=== PATIENT | female | born 1955 | race Caucasian/White ===

== ENCOUNTER 2025-10-15 18:46 | Inpatient (IN) | payer MEDICARE, MEDICAID ==
[~2025-10-15] VITALS: Ht 170.2 cm; Wt 75.0 kg
[~2025-10-15 18:46] MED LIST: OMEP-434 PO; ONDA-144 PO; SULF400T11; aspirin; clindamycin; doxy; gabapentin; ibuprofen; metformin
[2025-10-15] MEDS: DEXTROSE 50% SYRINGE 50 ML IV ONE (18:52)
[2025-10-15] MEDS: DEXTROSE (50%) 50ML SYRG IV ONE (18:53)
--- NOTE | 2025-10-15 19:18 | ED.PDOC ---
History of Present Illness HPI Comments 69-year-old female is brought in by ambulance from private residence for chief complaint of altered mental status. Significant history for CAD, DM-insulin dependent, HLD, HTN, hypothyroidism, UTIs. Patient was found by family unresponsive, this evening, with past well known time at around [id number], this morning. Baseline is GCS15. Initial on scene blood glucose reading of 'low.' and well, patient was given 1 bag of dextrose, blood glucose reassessed at a value of 34. Upon arrival to ED, patient is awake and alert but drowsy and reports on taking her insulin and passing out prior to eating her dinner. She reports on similar events happening in the past whenever taking her insulin and not being able to eat. Normally, she is compliant with her medications and comments on no recent changes them. Aside from feeling drowsy, currently, patient reports no further acute symptoms. Chief Complaint: Hypoglycemia Time Seen by MD: 18:50 Reviewed Notes: Nurses Notes, Button Spindler Notes, Medications, Allergies Allergies: Coded Allergies: NO KNOWN ALLERGIES (Unverified , 10/15/25) Information Source: Patient, Emergency Med Personnel Mode of Arrival: EMS Severity: Moderate Timing: Hours Duration: Since onset Prehospital treatment: 12 Lead EKG, Accucheck, Installation Supervisor, Treatment (Dextrose) Past Medical History PAST MEDICAL HISTORY: CAD (Angina), DM, High Lipids, HTN, Thyroid (Hypothyroidism), UTI'S Past Medical History (Other): Gastroparesis Surgical History: Denies all surgeries AEROSPACE MEDICINE PHYSICIAN History: Denies all AEROSPACE MEDICINE PHYSICIAN Hx Family History Family History: Unknown Social History Smoker: Cigarettes Alcohol: Occasionally Drugs: Denies Drug Use Lives In: Home All Other Systems: Reviewed and Negative (Comprehensive review of systems are negative unless stated in HPI) Physical Exam General Appearance: No Apparent Distress, Normal HEENT: Normal ENT Inspection, Pharynx Normal, TMs Normal Neck: Full Range of Motion, Non-Tender, Normal, Normal Inspection Respiratory: Chest Non-Tender, Lungs Clear, No Accessory Muscle Use, No Res piratory Distress, Normal Breath Sounds Cardiovascular: No Edema, No JVD, No Murmur, No Gallop, Normal Peripheral Pulses, Regular Rate/Rhythm Breast Exam: Deferred Gastrointestinal: No Organomegaly, Non Tender, No Pulsatile Mass, Normal Bowel Sounds, Soft Genitalia: Deferred Pelvic: Deferred Rectal: Deferred Extremities: No calf tenderness, Normal capillary refill, Normal inspection, Normal range of motion, Non-tender, No pedal edema Musculoskeletal : Apperance: Normal Neurologic: Alert (Compliant), customer retention representative II-XII nml as Tested, No Motor Deficits, No Sensory Deficits, Speech Problem (Slow speech), Other (Drowsy affect; no focal deficits) Cerebellar Function: Normal Reflexes: Normal Skin: Dry, Normal Color, Warm Lymphatic: No Adenopathy Was a procedure done? Was a procedure done?: No Differential Dx Considerations may include: Hypoglycemia, encephalopathy, dehydration, electrolyte imbalance, medication noncompliance, among others X-Ray, Labs, Meds, VS Vital Signs Date Time Temp Pulse Resp B/P (MAP) Pulse Ox O2 Delivery O2 Flow Rate FiO2 10/15/25 21:10 98 14 99 Room Air* 0 21 10/15/25 21:08 97.7 99 14 143/64 (90) 100 97.7 10/15/25 19:18 87 10/15/25 18:55 98.1 86 18 129/64 98 98.1 Lab Test 10/15/25 20:56 10/15/25 19:59 Range/Units POC Glucose 194 H 70-106 mg/dl White Blood Count 9.6 4.4-10.8 10^3/uL Red Blood Count 4.27 4.0-5.20 10^6/uL Hemoglobin 12.3 12.2-16.2 g/dL Hematocrit 37.6 36.0-46.0 % Mean Corpuscular Volume 88.0 80.0-100.0 fL Mean Corpuscular Hemoglobin 28.9 28.0-32.0 pg Mean Corpuscular Hemoglobin Concent 32.9 32.0-36.0 g/dL Red Cell Distribution Width 14.9 H 11.8-14.3 % Platelet Count 134 L 140-450 10^3/uL Mean Platelet Volume 9.0 6.9-10.8 fL Neutrophils (%) (Auto) 80.5 H 37.0-80.0 % Lymphocytes (%) (Auto) 12.6 10.0-50.0 % Monocytes (%) (Auto) 5.1 0.0-12.0 % Eosinophils (%) (Auto) 1.4 0.0-7.0 % Basophils (%) (Auto) 0.4 0.0-2.0 % Neutrophils # (Auto) 7.7 1.6-8.6 10 ^3/uL Lymphocytes # (Auto) 1.2 0.4-5.4 10 ^3/uL Monocytes # (Auto) 0.5 0-1.3 10 ^3/uL Eosinophils # (Auto) 0.1 0-0.8 10 ^3/uL Basophils # (Auto) 0 0-0.2 10 ^3/uL Nucleated Red Blood Cells 0.0 % Sodium Level 137 136-145 mmol/L Potassium Level 3.7 3.5-5.1 mmol/L Chloride Level 100 98-107 mmol/L Carbon Dioxide Level 27 20-31 mmol/L Anion Gap 10 5-15 Blood Urea Nitrogen 12 9-23 mg/dL Creatinine 0.70 0.550-1.02 mg/dL Glomerular Filtration Rate Calc 93 >90 mL/min BUN/Creatinine Ratio 17.1 10.0-20.0 Serum Glucose 281 H 74-106 mg/dL Calcium Level 8.5 L 8.7-10.4 mg/dL Creatine Kinase 150 H 34-145 U/L Troponin I High Sensitivity 6 </=34 ng/L Current Medications Medications (Trade) Dose Ordered Sig/Claudia Route Start Time Stop Time Status Last Admin Dextrose 50 ml ONCE ONCE IV 10/15/25 19:00 10/15/25 19:01 DC 10/15/25 18:53 Sodium Chloride 1,000 ml @ 30 mls/hr Q24H ONCE IV 10/15/25 19:00 10/16/25 18:59 10/15/25 21:05 Time of 1ST Reevaluation: 19:20 Reevaluation 1ST: Unchanged Patient Education/Counseling: Diagnosis, Treatment, Need For Follow Up Family Education/Counseling: No Family Present Comments This is a patient who thinks there blood sugar dropped because she took her insulin right before she ate. However she has had multiple episodes of this in the past. Here her blood sugar dropped again by the time the patient came here after she had received dextrose by paramedics. Patient is still appears groggy and slightly confused. She does not have any focal neurologic findings. Patient will be admitted for further observation for recurrent hypoglycemia Additional Information Previous visits reviewed: n/a Labs ordered: Accu-Chek, creatinine kinase, troponin, BMP, UA, CBC Images reviewed: Chest x-ray Additional historian is interviewed: EMS personnel SEPSIS Sepsis Screen Date sepsis recognized/suspect: Oct 15, 2025 Time Sepsis recognized/suspect: 1854 Recent Procedure: No On Antibiotic Therapy: No Respiratory Rate >20: No Heart Rate >90: No Temp<36 C (96.8 F) or >38.3 C: No SBP <90 or MAP <65 mmHG: No New Acute Mental Status Change: No Is the patient on CPAP, BIPAP,: No Physician Orders Chest Portable (10/15/25 18:58) Urinalysis (10/15/25 18:58) Sodium Chloride 0.9% (10/15/25 19:00) Continuous Ekg Monitoring 08,12,16,20,00,04 (10/15/25 19:01) Electrocardigram (10/15/25 19:01) Accucheck (10/15/25 20:00) Accucheck (10/15/25 21:00) Accucheck (10/15/25 22:00) Accucheck (10/15/25 23:00) Accucheck (10/16/25 00:00) Accucheck (10/16/25 01:00) Accucheck (10/16/25 02:00) Accucheck (10/16/25 03:00) Accucheck (10/16/25 04:00) Accucheck (10/16/25 05:00) Accucheck (10/16/25 06:00) Accucheck (10/16/25 07:00) Accucheck (10/16/25 08:00) Accucheck (10/16/25 09:00) Accucheck (10/16/25 10:00) Accucheck (10/16/25 11:00) Accucheck (10/16/25 12:00) Accucheck (10/16/25 13:00) Accucheck (10/16/25 14:00) Accucheck (10/16/25 15:00) Accucheck (10/16/25 16:00) Accucheck (10/16/25 17:00) Accucheck (10/16/25 18:00) Accucheck (10/16/25 19:00) Accucheck (10/16/25 20:00) Accucheck (10/16/25 21:00) Accucheck (10/16/25 22:00) Accucheck (10/16/25 23:00) Vital Signs Date Time Temp Pulse Resp B/P (MAP) Pulse Ox O2 Delivery O2 Flow Rate FiO2 10/15/25 21:10 98 14 99 Room Air* 0 21 10/15/25 21:08 97.7 99 14 143/64 (90) 100 97.7 10/15/25 19:18 87 10/15/25 18:55 98.1 86 18 129/64 98 98.1 Laboratory Tests Test 10/15/25 19:59 White Blood Count 9.6 10^3/uL (4.4-10.8) Medications Medications Dose Ordered Sig/Claudia Route Start Time Stop Time Status Last Admin Dose Admin Dextrose 50 ml ONCE ONCE IV 10/15/25 19:00 10/15/25 19:01 DC 10/15/25 18:53 Sodium Chloride 1,000 ml @ 30 mls/hr Q24H ONCE IV 10/15/25 19:00 10/16/25 18:59 10/15/25 21:05 Departure 1 Departure Time of Disposition: 22:25 Impression: Primary Impression: Recurrent severe hypoglycemia Disposition: 01 HOME / SELF CARE / HOMELESS Condition: Stable Discharged With: Self Critical Care Note Critical Care Time?: No Stability Stability form required: No Heart Score Heart Score: Heart Score Response (Comments) Value History N/A 0 EKG N/A 0 Age N/A 0 Risk Factors N/A 0 Troponin N/A 0 Total 0 I personally scribed for WILBER NGUYEN MD ([email or web address]) on 10/15/25 at 19:18. Electronically submitted by Varghese Kaba ([email or web address]). WILBER NGUYEN MD Oct 15, 2025 19:18
--- NOTE | 2025-10-15 20:15 | DVH ---
EXAM: XY CHEST PORTABLE HISTORY: electric shock TECHNIQUE: 1 view of the chest COMPARISON: None FINDINGS/IMPRESSION: LUNGS: Increased interstitial markings in bilateral mid to lower lung zones with peribronchial thickening. MEDIASTINUM: Unremarkable. BONES: No acute osseous abnormality. OTHER: Bilateral breast implants.
[2025-10-15 20:26] LABS: Chloride 100 mmol/L (98-107); Hematocrit 37.6 % (36.0-46.0); Hemoglobin 12.3 g/dL (12.2-16.2); Mean Corpuscular Hemoglobin 28.9 pg (28.0-32.0); Mean Corpuscular Volume 88.0 fL (80.0-100.0); Nucleated Red Blood Cells % 0.0 %; Potassium 3.7 mmol/L (3.5-5.1); Sodium 137 mmol/L (136-145)
[2025-10-15 20:27] LABS: Anion Gap 10 (5-15); Carbon Dioxide 27 mmol/L (20-31)
[2025-10-15 20:33] LABS: BUN/Creatinine Ratio 17.1 (10.0-20.0); Blood Urea Nitrogen 12 mg/dL (9-23)
[2025-10-15 20:35] LABS: Calcium 8.5 mg/dL (8.7-10.4); Creatine Kinase IFCC 150 U/L (34-145); Glucose 281 mg/dL (74-106)
[2025-10-15] MEDS: SODIUM CHLORIDE 0.9% 1,000 ML IV ONE (21:05)
[2025-10-15 21:10] VITALS: PULSE 98; RESP 14; O2SAT 99
[2025-10-15] MEDS ORDERED: ACETAMINOPHEN 325 MG TAB PO PRN (23:15)
[2025-10-15] MEDS ORDERED: DEXTROSE (50%) 50ML SYRG IV PRN (23:15)
[2025-10-15] MEDS ORDERED: ONDANSETRON HCL 4 MG/2 ML VIAL IV PRN (23:15)
[2025-10-16] MEDS: ACCU-CHEK COMFORT CURVE STRIP VI SCH (00:25)
[2025-10-16] MEDS: InsuLIN REG 1unit/0.01ml Soln (100units/ml) SC SCH (00:25)
--- NOTE | 2025-10-16 01:24 | DVHHP2 ---
History of Present Illness Reason for Visit: Altered mental status History of Present Illness 69-year-old female presents for evaluation of altered mental status. Patient was noted by family members to be unresponsive. When EMS arrived patient's blood sugar was reading low. Procedure department it was reading in the 30s. Patient is currently lethargic oriented x3. No headache or blurred vision. No unilateral weakness. No cardiac or respiratory complaints. Past Medical History Diabetes mellitus, CAD, hypertension, thyroid, UTI Past Surgical History Breast implants Family History Noncontributory Smoke: <1 pack per day ALCOHOL: occassional Drugs: None Lives: with Family Review of Systems Review of Systems Review of systems are currently negative otherwise addressed in HPI. Allergies: Coded Allergies: Sulfa Antibiotics (Verified Allergy, Unknown, 10/15/25) Medications Current Medications Medications Dose Ordered Sig/Claudia Route Start Time Stop Time Status Last Admin Dose Admin Diagnostic Test (Pha) 1 strip IQ4HR 10/16/25 00:00 10/16/25 00:25 1 STRIP Insulin Human Regular IQ4HR SC 10/16/25 00:00 10/16/25 00:25 6 UNITS Dextrose 50 ml UD PRN IV 10/15/25 23:15 Ondansetron HCl 4 mg Q4HP PRN IV 10/15/25 23:15 Acetaminophen 650 mg Q6HP PRN PO 10/15/25 23:15 Exam Vital Signs Vital Signs Date Time Temp Pulse Resp B/P (MAP) Pulse Ox O2 Delivery O2 Flow Rate FiO2 10/15/25 23:00 86 16 138/65 (89) 95 10/15/25 21:10 Room Air* 0 21 10/15/25 21:08 97.7 97.7 Exam Gen: 69-year-old female in mild distress Skin: Warm, dry, normal color and texture, no rash. HEENT: Normocephalic atraumatic, mucous membranes moist and pink. Neck: Cervical and supraclavicular nodes normal without enlargement, trachea is midline, thyroid gland is normal without masses. Pulmonary: Clear to auscultation and percussion bilaterally. Cardiac: Regular rate and rhythm. No murmur Abdomen: Soft, nontender, nondistended, bowel sounds present all 4 quadrants, no guarding, no rigidity, no organomegaly. Extremities: No cyanosis, clubbing, no edema Neuro: Cranial nerves II through XII grossly intact, normal affect and speech, no focal motor deficits. Labs/Xrays ORDERING PHYSICIAN: WILBER NGUYEN MD PROCEDURE(s): CXRP - CHEST PORTABLE REASON: electric shock ORDER NUMBER(s): [id number], ACCESSION NUMBER(s): [id number] EXAM: XY CHEST PORTABLE HISTORY: electric shock TECHNIQUE: 1 view of the chest COMPARISON: None FINDINGS/IMPRESSION: LUNGS: Increased interstitial markings in bilateral mid to lower lung zones with peribronchial thickening. MEDIASTINUM: Unremarkable. BONES: No acute osseous abnormality. OTHER: Bilateral breast implants. Labs Test 10/16/25 00:18 10/15/25 19:59 Range/Units POC Glucose 283 H 70-106 mg/dl White Blood Count 9.6 4.4-10.8 10^3/uL Red Blood Count 4.27 4.0-5.20 10^6/uL Hemoglobin 12.3 12.2-16.2 g/dL Hematocrit 37.6 36.0-46.0 % Mean Corpuscular Volume 88.0 80.0-100.0 fL Mean Corpuscular Hemoglobin 28.9 28.0-32.0 pg Mean Corpuscular Hemoglobin Concent 32.9 32.0-36.0 g/dL Red Cell Distribution Width 14.9 H 11.8-14.3 % Platelet Count 134 L 140-450 10^3/uL Mean Platelet Volume 9.0 6.9-10.8 fL Neutrophils (%) (Auto) 80.5 H 37.0-80.0 % Lymphocytes (%) (Auto) 12.6 10.0-50.0 % Monocytes (%) (Auto) 5.1 0.0-12.0 % Eosinophils (%) (Auto) 1.4 0.0-7.0 % Basophils (%) (Auto) 0.4 0.0-2.0 % Neutrophils # (Auto) 7.7 1.6-8.6 10 ^3/uL Lymphocytes # (Auto) 1.2 0.4-5.4 10 ^3/uL Monocytes # (Auto) 0.5 0-1.3 10 ^3/uL Eosinophils # (Auto) 0.1 0-0.8 10 ^3/uL Basophils # (Auto) 0 0-0.2 10 ^3/uL Nucleated Red Blood Cells 0.0 % Sodium Level 137 136-145 mmol/L Potassium Level 3.7 3.5-5.1 mmol/L Chloride Level 100 98-107 mmol/L Carbon Dioxide Level 27 20-31 mmol/L Anion Gap 10 5-15 Blood Urea Nitrogen 12 9-23 mg/dL Creatinine 0.70 0.550-1.02 mg/dL Glomerular Filtration Rate Calc 93 >90 mL/min BUN/Creatinine Ratio 17.1 10.0-20.0 Serum Glucose 281 H 74-106 mg/dL Calcium Level 8.5 L 8.7-10.4 mg/dL Creatine Kinase 150 H 34-145 U/L Troponin I High Sensitivity 6 </=34 ng/L SEPSIS Sepsis Screen Date sepsis recognized/suspect: Oct 15, 2025 Time Sepsis recognized/suspect: 2111 Recent Procedure: No On Antibiotic Therapy: No Respiratory Rate >20: No Heart Rate >90: Yes Temp<36 C (96.8 F) or >38.3 C: No SBP <90 or MAP <65 mmHG: No New Acute Mental Status Change: No Is the patient on CPAP, BIPAP,: No Physician Orders Chest Portable (10/15/25 18:58) Urinalysis (10/15/25 18:58) Sodium Chloride 0.9% (10/15/25 19:00) Continuous Ekg Monitoring 08,12,16,20,00,04 (10/15/25 19:01) Electrocardigram (10/15/25 19:01) Accucheck (10/15/25 20:00) Accucheck (10/15/25 21:00) Accucheck (10/15/25 22:00) Accucheck (10/15/25 23:00) Accucheck (10/16/25 00:00) Accucheck (10/16/25 01:00) Accucheck (10/16/25 02:00) Accucheck (10/16/25 03:00) Accucheck (10/16/25 04:00) Accucheck (10/16/25 05:00) Accucheck (10/16/25 06:00) Accucheck (10/16/25 07:00) Accucheck (10/16/25 08:00) Accucheck (10/16/25 09:00) Accucheck (10/16/25 10:00) Accucheck (10/16/25 11:00) Accucheck (10/16/25 12:00) Accucheck (10/16/25 13:00) Accucheck (10/16/25 14:00) Accucheck (10/16/25 15:00) Accucheck (10/16/25 16:00) Accucheck (10/16/25 17:00) Accucheck (10/16/25 18:00) Accucheck (10/16/25 19:00) Accucheck (10/16/25 20:00) Accucheck (10/16/25 21:00) Accucheck (10/16/25 22:00) Accucheck (10/16/25 23:00) Communication Order (10/15/25 23:10) Consistent Carb(Ccho)Diabetes (10/16/25 Breakfast) Basic Metabolic Panel (10/16/25 04:00) Glucose Blood (Accu-Chek Comfort Curve T (10/16/25 00:00) Insulin R (Human) (Insulin R) (10/16/25 00:00) Dextrose 50% Syringe (10/15/25 23:15) Admit (10/15/25 23:10) Ondansetron Hcl (Zofran) (10/15/25 23:15) Condition: Stable (10/15/25 23:10) Acetaminophen Tablet (Tylenol Tablet) (10/15/25 23:15) Bedrest With Bathroom Privileg (10/15/25 23:10) Vital Signs Date Time Temp Pulse Resp B/P (MAP) Pulse Ox O2 Delivery O2 Flow Rate FiO2 10/15/25 23:00 86 16 138/65 (89) 95 10/15/25 21:10 98 14 99 Room Air* 0 21 10/15/25 21:08 97.7 99 14 143/64 (90) 100 97.7 10/15/25 19:18 87 10/15/25 18:55 98.1 86 18 129/64 98 98.1 Laboratory Tests Test 10/15/25 19:59 White Blood Count 9.6 10^3/uL (4.4-10.8) Medications Medications Dose Ordered Sig/Claudia Route Start Time Stop Time Status Last Admin Dose Admin Dextrose 50 ml ONCE ONCE IV 10/15/25 19:00 10/15/25 19:01 DC 10/15/25 18:53 50 ML Diagnostic Test (Pha) 1 strip IQ4HR 10/16/25 00:00 10/16/25 00:25 1 STRIP Insulin Human Regular IQ4HR SC 10/16/25 00:00 10/16/25 00:25 6 UNITS Sodium Chloride 1,000 ml @ 30 mls/hr Q24H ONCE IV 10/15/25 19:00 10/16/25 18:59 10/15/25 21:05 30 MLS/HR Assessment/Plan Assessment/Plan Assessment Metabolic encephalopathy Hypoglycemia Hypertension Plan Admit the patient to [facility] to the hospitalist Q.4 hour Accu-Cheks Start D10 maintenance IV if blood sugar drops below 50 Continue treatment per orders. Plan discussed with: Patient My Orders Orders - DESIRE NICHOLE Procedure Category Date Status Time Communication Order ORDERS 10/15/25 Transmitted 23:10 Consistent DIET 10/16/25 Transmitted Carb(Ccho)Diabetes Breakfast Basic Metabolic Panel LAB 10/16/25 Logged 04:00 Glucose Blood PHA 10/16/25 In Process (Accu-Chek Comfort 00:00 Insulin R (Human) PHA 10/16/25 In Process (Insulin R) 00:00 Dextrose 50% Syringe PHA 10/15/25 In Process 23:15 Admit ADMIT 10/15/25 Transmitted 23:10 Ondansetron Hcl PHA 10/15/25 In Process (Zofran) 23:15 Condition: Stable HARDY 10/15/25 In Process 23:10 Acetaminophen Tablet PHA 10/15/25 In Process (Tylenol Tablet) 23:15 Bedrest With Bathroom HARDY 10/15/25 In Process Privileg 23:10 Date of Service: Oct 15, 2025 Billing Provider: DESIRE NICHOLE Common Visit Codes: [id number] INP/OBS CARE (MOD) DESIRE NICHOLE Oct 16, 2025 01:24
[2025-10-16 03:42] LABS: Anion Gap 10 (5-15); Carbon Dioxide 29 mmol/L (20-31); Chloride 103 mmol/L (98-107); Potassium 4.4 mmol/L (3.5-5.1); Sodium 142 mmol/L (136-145)
[2025-10-16 03:48] LABS: BUN/Creatinine Ratio 15.0 (10.0-20.0); Blood Urea Nitrogen 12 mg/dL (9-23)
[2025-10-16 04:00] LABS: Calcium 8.4 mg/dL (8.7-10.4); Glucose 276 mg/dL (74-106)
[2025-10-16] MEDS: LEVOTHYROXINE SODIUM 25 MCG TAB PO SCH (06:00)
--- NOTE | 2025-10-16 06:57 | ECG ---
[facility] Test Date: 2025-10-15 Test Time: 19:18:11 Pat Name: DANIELLE CRUZ Department: ED Room: [address] [place] [address] A Gender: F Construction Ironworker: : [id number] Requested By: WILBER NGUYEN Order Number: [id number] Reading MD: Jose Ramon Murray Measurements Intervals [place] Rate: 87 P: 70 RI: 144 QRS: 58 QRSD: 101 T: 64 QT: 361 QTc: 435 Interpretive Statements Sinus rhythm Atrial premature complexes Anteroseptal infarct, age indeterminate Electronically Signed On 10-19-2025 19:15:07 PST by Jose Ramon Murray Please click the below link to view image of tracing.
[2025-10-16 07:30] VITALS: BP 110/53; TEMP 97.6
[2025-10-16 08:15] VITALS: PULSE 82; RESP 10; O2SAT 99
--- NOTE | 2025-10-16 15:19 | DVHDS2 ---
Discharge Summary Date of Admission Oct 15, 2025 at 23:10 Date of Discharge: Oct 16, 2025 Labs/Diagnostic Data: Laboratory Results Test 10/16/25 08:05 10/16/25 03:02 10/15/25 19:59 POC Glucose 78 mg/dl (70-106) Sodium Level 142 mmol/L (136-145) Potassium Level 4.4 mmol/L (3.5-5.1) Chloride Level 103 mmol/L (98-107) Carbon Dioxide Level 29 mmol/L (20-31) Anion Gap 10 (5-15) Blood Urea Nitrogen 12 mg/dL (9-23) Creatinine 0.80 mg/dL (0.550-1.02) Glomerular Filtration Rate Calc 79 mL/min (>90) BUN/Creatinine Ratio 15.0 (10.0-20.0) Serum Glucose 276 mg/dL (74-106) Hemoglobin A1c 9.5 % A1C (<5.7) Calcium Level 8.4 mg/dL (8.7-10.4) White Blood Count 9.6 10^3/uL (4.4-10.8) Red Blood Count 4.27 10^6/uL (4.0-5.20) Hemoglobin 12.3 g/dL (12.2-16.2) Hematocrit 37.6 % (36.0-46.0) Mean Corpuscular Volume 88.0 fL (80.0-100.0) Mean Corpuscular Hemoglobin 28.9 pg (28.0-32.0) Mean Corpuscular Hemoglobin Concent 32.9 g/dL (32.0-36.0) Red Cell Distribution Width 14.9 % (11.8-14.3) Platelet Count 134 10^3/uL (140-450) Mean Platelet Volume 9.0 fL (6.9-10.8) Neutrophils (%) (Auto) 80.5 % (37.0-80.0) Lymphocytes (%) (Auto) 12.6 % (10.0-50.0) Monocytes (%) (Auto) 5.1 % (0.0-12.0) Eosinophils (%) (Auto) 1.4 % (0.0-7.0) Basophils (%) (Auto) 0.4 % (0.0-2.0) Neutrophils # (Auto) 7.7 10 ^3/uL (1.6-8.6) Lymphocytes # (Auto) 1.2 10 ^3/uL (0.4-5.4) Monocytes # (Auto) 0.5 10 ^3/uL (0-1.3) Eosinophils # (Auto) 0.1 10 ^3/uL (0-0.8) Basophils # (Auto) 0 10 ^3/uL (0-0.2) Nucleated Red Blood Cells 0.0 % Creatine Kinase 150 U/L (34-145) Troponin I High Sensitivity 6 ng/L (</=34) Other Laboratory Tests 10/16/25 03:02 10/15/25 19:59 Brief Hx & Hospital Course: 69-year-old female presents for evaluation of altered mental status. Patient was noted by family members to be unresponsive. When EMS arrived patient's blood sugar was reading low. Procedure department it was reading in the 30s. Patient is currently lethargic oriented x3. No headache or blurred vision. No unilateral weakness. No cardiac or respiratory complaints. Past Medical History Diabetes mellitus, CAD, hypertension, thyroid, UTI Assessment acute toxic Metabolic encephalopathy Hypoglycemia Hypertension Diabetes mellitus, type 2 likely, CAD, history thyroid disease history multiple UTI plan: Patient left AMA, thus assuming all responsibility and any complications that may arise from having not getting recommended and needed adequate medical care/attention. Complications can include including and/or coma, and any other serious fatal comorbidities. Condition at Discharge: Undetermined Final Diagnosis/Problems List acute toxic Metabolic encephalopathy Hypoglycemia Hypertension Diabetes mellitus, type 2 likely, CAD, history thyroid disease history multiple UTI Discharge Disposition: AMA Discharge Instruct/Medications Scheduled Omeprazole Magnesium (Omeprazole), 20 MG PO DAILY Ondansetron (Zofran), 1 TAB PO Q6HR Miscellaneous Medications Sulfamethoxazole-Trimethoprim (Bactrim), (Reported) [aspirin], (Reported) [clindamycin], (Reported) [doxy], (Reported) [gabapentin], (Reported) [ibuprofen], (Reported) [metformin], (Reported) Discharge Statement: "Patient was advised to return to the ER or call 911 if any headaches, dizziness, shortness of breath, chest pain, abdominal pain, bleeding, fevers, or worsening of medical condition. Patient was counseled about treatment plan, medications, possible side effects, patientverbalized understanding. All questions were answered to the best of my ability. This discharge took greater then 30 minutes in planning, reviewing documentation, counseling the patient, and discussing with other team members." ASSESSMENT ASSESSMENT Assessment Date of Service: Oct 16, 2025 Billing Provider: RADHA LEE MD Common Visit Codes: NOT BILLABLE RADHA LEE MD Oct 16, 2025 15:19
== END 2025-10-16 11:36 | disposition left against medical advice (07) | DRG 637 ==
LOC: ER 18:46 → EDBD 18:46 → OVERFLOW 23:10
PROVIDERS: ADMIT Student in an Organized Health Care Education/Training Program; ATTEND Student in an Organized Health Care Education/Training Program
DX: E11.649 Type 2 diabetes mellitus with hypoglycemia without coma (principal); G92.8 Other toxic encephalopathy; E03.9 Hypothyroidism, unspecified; I10 Essential (primary) hypertension; Z53.29 Procedure and treatment not carried out because of patient's decision for other reasons; I25.10 Atherosclerotic heart disease of native coronary artery without angina pectoris; Z79.4 Long term (current) use of insulin; F17.210 Nicotine dependence, cigarettes, uncomplicated; Z98.82 Breast implant status; E78.5 Hyperlipidemia, unspecified
CPT/HCPCS: 36415; 71045; 80048; 82550; 82962; 83036; 84484; 85025; 93005; 96360; G0378; J1815